=== PATIENT | female | born 1990 ===

== ENCOUNTER 2017-09-10 09:50 | Emergency (ER) | payer SELFPAY ==
[2017-09-10 09:58] VITALS: BP 151/82; PULSE 66; RESP 18; TEMP 97.6; O2SAT 100
[2017-09-10] MEDS ORDERED: IBUPROFEN 600 MG TAB ONE (10:27)
[2017-09-10] MEDS: IBUPROFEN 600 MG TAB PO ONE (10:28)
== END 2017-09-10 10:35 | disposition home or self-care (01) | DRG 563 ==
LOC: ED 09:50
DX: S93.602A Unspecified sprain of left foot, initial encounter (principal)
CPT/HCPCS: 73630; 99282; A9270-GY